=== PATIENT | female | born 1955 | race Asian ===

== ENCOUNTER → 2021-04-11 00:25 | Outpatient (CLI) | payer SELFPAY ==
[2021-04-11 17:38] LABS: SARS-CoV-2 RNA PCR Negative
== END ==
PROVIDERS: PCP Internal Medicine Endocrinology, Diabetes & Metabolism; Visit Provider Internal Medicine Endocrinology, Diabetes & Metabolism
DX: R68.89 Other general symptoms and signs (principal); Z20.822 Contact with and (suspected) exposure to COVID-19
CPT/HCPCS: C9803; U0003; U0005